=== PATIENT | male | born 1955 | race African-American/Black ===

== ENCOUNTER 2017-01-22 23:27 | Emergency (ER) | payer OTHER ==
[2017-01-23 00:11] LABS: #Eosinphils 0.2 thou/uL (0.0-0.7); #Lymphocytes 1.2 thou/uL (1.20-3.40); #Monocytes 0.6 thou/uL (0.11-0.59); #Neutrophils 4.3 thou/uL (1.40-6.50); %Basophils 0.4 % (0.0-1.0); %Eosinophils 3.5 % (0.0-10.0); %Monocytes 9.4 % (0.0-10.0); Hematocrit 33.6 % (42.0-52.0); Mean Platelet Volume 6.9 fL (7.4-10.4); Red Blood Cell (RBC) Count 3.41 mill/uL (4.70-6.10); White Blood Cell (WBC) Count 6.3 thou/uL (4.8-10.8)
[2017-01-23 00:31] LABS: ALT (SGPT) 103 U/L (8-55); AST (SGOT) 76 U/L (5-34); Alkaline Phosphatase 122 U/L (40-150); Anion Gap 13 mmol/L (10-20); BUN (Urea Nitrogen) 21 mg/dL (8.4-25.7); Bilirubin, Total 1.1 mg/dL (0.2-1.2); Calc. Creatinine Clearance 0 mL/min (70-130); Calcium 9.7 mg/dL (7.8-10.44); Carbon Dioxide 22 mmol/L (23-31); Chloride 106 mmol/L (98-107); Estimated GFR-MDRD 44; Protein, Total 6.3 g/dL (5.8-8.1)
[2017-01-23 00:35] LABS: Troponin I 0.036 ng/mL (< 0.028)
[2017-01-23] MEDS ORDERED: Furosemide 40 MG/4 ML VIAL ONE (01:30)
[2017-01-23 03:19] LABS: Troponin I 0.045 ng/mL (< 0.028)
--- NOTE | 2017-01-23 07:43 | RAD ---
PORTABLE AP CHEST: Date: 01/22/17 HISTORY: Chest pain. COMPARISON: 05/08/15. FINDINGS: Single lead left subclavian AICD device remains in place. The cardiac silhouette is enlarged. There i s suboptimal evaluation of the left lung base due to the enlarged cardiac silhouette and overlying so ft tissue density. Appearance is overall similar to the prior exam. Pleural and parenchymal changes l eft lung base cannot be excluded. Right lung is clear. No other interval change. IMPRESSION: 1. Cardiomegaly. 2. Suboptimal evaluation of the left lung base due to the enlarged cardiac silhouette. There is sugg estion of calcified pleural based plaque at the left lung base, but additional pleural and parenchyma l changes cannot be entirely excluded. POS: YU
--- NOTE | 2017-02-27 12:39 | EKG ---
Test Reason : CHEST PAIN Blood Pressure : / mmHG Vent. Rate : 080 BPM Atrial Rate : 080 BPM P-R Int : 166 ms QRS Dur : 108 ms QT Int : 412 ms P-R-T Axes : 083 008 149 degrees QTc Int : 475 ms Sinus rhythm with Premature supraventricular complexes Possible Left atrial enlargement Left ventricular hypertrophy with repolarization abnormality Abnormal ECG Confirmed by YURY CROOKS ([id number]), film editor supervisor SHO HAGER ([id number]) on 02/27/2017 12:39:19 PM Referred By: Confirmed By:YURY CROOKS
== END 2017-01-23 04:20 | disposition short-term general hospital (02) ==
LOC: ERS 23:27
DX: I50.9 Heart failure, unspecified (principal); Z79.4 Long term (current) use of insulin; B20 Human immunodeficiency virus [HIV] disease; J44.9 Chronic obstructive pulmonary disease, unspecified; Z79.82 Long term (current) use of aspirin; Z95.810 Presence of automatic (implantable) cardiac defibrillator
CPT/HCPCS: 36415; 71010; 80053; 82553; 83880; 84484; 85025; 93005; 96374; J1940

== ENCOUNTER 2018-01-21 04:07 | Observation (INO) | payer OTHER ==
[2018-01-21 05:18] LABS: Troponin I 0.019 ng/mL (< 0.028)
[2018-01-21] MEDS ORDERED: Ondansetron PF 4 MG/2 ML Vial ONE (05:28)
--- NOTE | 2018-01-21 05:34 | PDOC.FPRHP ---
- History of Present Illness Chief Complaint: chest pain History of Present Illness: This is a 62 yo M with PMH significant for WA s/p 2 stents and defibrillator, CHF, DM, HIV, COPD, Hep C, HTn, HLD, and hypothyroidism, presenting with CC of chest pain. Patient is an inmate and transfer from [place] for chest pain r/o. Patient states that he was in line for food when he first starting having chest pain yesterday. Patient states he has been "feeling bad" the last few days and reports SOB during that time that has gotten progressively worse. Patient also endorses N/V X 2 yesterday. Endorses palpitations. Patient states chest pain is left sided, characterized as sharp and radiates to the left shoulder. This pain has been intermittent since yesterday. Worse with walking. Patient states he took 4 nitro which some relief of chest pain. Patient rated pain as 9/10 at its worst and on exam now 5/10. Patient also endorses LE swelling bilaterally worse than normal. Patient denies cough, congestion, diarrhea, abdominal pain, or headache. ED Course: 4mg zofran, 500ml NS - Home Medications Medication Instructions Recorded Confirmed Type Abacavir Sulfate [Abacavir] 300 mg PO BID 01/21/18 01/21/18 History Albuterol Sulfate [Proventil Hfa] 2 puff INH Q6H PRN 01/21/18 01/21/18 History Aspirin [Aspirin EC] 81 mg PO DAILY 01/21/18 01/21/18 History Atorvastatin Calcium [Lipitor] 20 mg PO DAILY 01/21/18 01/21/18 History Beclomethasone Dipropionate [Qvar 01/21/18 History Redihaler] Carvedilol [Coreg] 6.25 mg PO BID 01/21/18 01/21/18 History Furosemide [Lasix] 40 mg PO BID 01/21/18 01/21/18 History Insulin NPH Human Isophane 7 units SC HS 01/21/18 01/21/18 History [NovoLIN N] Insulin NPH Human Isophane 22 unit SC QAM 01/21/18 01/21/18 History [NovoLIN N] Isosorbide Mononitrate [Isosorbide 01/21/18 History Mononitrate ER] Levothyroxine Sodium 125 mcg PO 01/21/18 History Lisinopril 2.5 mg PO DAILY 01/21/18 01/21/18 History Lopinavir/Ritonavir [Kaletra] 2 tab PO BID 01/21/18 01/21/18 History Omeprazole 20 mg PO 01/21/18 History Raltegravir Potassium [Isentress] 400 mg PO BID 01/21/18 01/21/18 History Spironolactone 25 mg PO 01/21/18 History Tiotropium [Spiriva Handihaler] 18 mcg INH DAILY 01/21/18 01/21/18 History - History PMHx: WA s/p 2 stents and defibrillator, CHF, DM, HIV, hep C, COPD, HTN, HLD, hypothyroidism PSHx: 2 cardiac stents and defibrillator FHx: father - WA at 77 Social: former smoker > 40 pack year hx; denies alcohol or drug use - Review of Systems General: denies: fever/chills, weight/appetite/sleep changes, night sweats, fatigue Eyes: denies: eye pain, vision changes ENT: denies: nasal congestion, rhinorrhea Respiratory: reports: shortness of breath, exercise intolerance. denies: cough , congestion Cardiovascular: reports: chest pain, palpitation, edema. denies: paroxysmal nocturnal dyspnea, orthopnea Gastrointestinal: reports: nausea, vomiting. denies: diarrhea, constipation, abdominal pain Genitourinary: denies: dysuria Skin: denies: rashes, lesions Musculoskeletal: reports: swelling. denies: pain, tenderness Neurological: denies: numbness, weakness - Vital signs BP: 111/69 HR: 70 RR: 16 Tmax: 98 Pox: 97% on RA Wt: 113kg - Physical Exam Constitutional: NAD, awake, alert and oriented, well developed HEENT: normocephalic and atraumatic, PERRLA, EOMI, conjunctiva clear, no scleral icterus, grossly normal vision, grossly normal hearing, MMM -HEENT: poor dentition Neck: supple, FROM, trachea midline, no JVD Chest: no-tender to palpation, no lesions -Chest: tender over defibrillator site Heart: RRR, normal S1/S2, no murmurs/rubs/gallops, pulses present -Heart: 1+ edema to ankles bilaterally Lungs: no respiratory distress -Lungs: crackles in RLL field > LLL Abdomen: soft, bowel sounds present, no masses/distention, no hernias -Abdomen: mild tender diffusely Musculoskeletal: normal structure, normal tone, ROM grossly normal Neurological: no focal deficit Skin: no rash/lesions, good turgor Psychiatric: normal mood and affect, good judgment and insight, intact recent and remote memory FMR H&P: Results - EKG Interpretation EKG: ST and T wave abnormalities - possible inferolateral ischemia FMR H&P: A/P - Problem List (1) Chest pain Current Visit: Yes Status: Acute Code(s): R07.9 - CHEST PAIN, UNSPECIFIED (2) HIV (human immunodeficiency virus infection) Current Visit: Yes Status: Acute (3) Hepatitis C Current Visit: Yes Status: Acute Code(s): B19.20 - UNSPECIFIED VIRAL HEPATITIS C WITHOUT HEPATIC COMA (4) Diabetes Current Visit: Yes Status: Acute Code(s): E11.9 - TYPE 2 DIABETES MELLITUS WITHOUT COMPLICATIONS (5) HTN (hypertension) Current Visit: Yes Status: Acute Code(s): I10 - ESSENTIAL (PRIMARY) HYPERTENSION (6) HLD (hyperlipidemia) Current Visit: Yes Status: Acute Code(s): E78.5 - HYPERLIPIDEMIA, UNSPECIFIED (7) COPD (chronic obstructive pulmonary disease) Current Visit: Yes Status: Acute (8) CHF (congestive heart failure) Current Visit: Yes Status: Acute Code(s): I50.9 - HEART FAILURE, UNSPECIFIED (9) Hypothyroid Current Visit: Yes Status: Acute Code(s): E03.9 - HYPOTHYROIDISM, UNSPECIFIED (10) CKD (chronic kidney disease) stage 3, GFR 30-59 ml/min Current Visit: Yes Status: Acute Code(s): N18.3 - CHRONIC KIDNEY DISEASE, STAGE 3 (MODERATE) - Plan Typical Chest pain - ACS rule out - Indeterminant Trop -> trended down - heart score 6 - risk stratify with lipids, A1C, TSH - hx of CHF: will obtain Echo - Stress today; Will keep NPO; hold beta javid - no IVF due to hx of CHF - nitro for pain, not currently having chest pain Hx of CHF, reduced EF - Elevated BNP 898 - Echo in 2012 showed EF: 15-20%, likely systolic CHF - Will obtain Echo - Will not give IVF - Give home dose of lasix CKD, stage 3 - Cr 1.83, previous admission Cr 1.88; GFR 45 - Will monitor - renally dose medications DM - aware, will restart home meds - Mild SS, ACHS accuchecks - hypoglycemic protocol HTN - aware, will restart home meds - Monitor BPs HIV - aware, restart home meds COPD - aware, restart home meds - O2 sats 88-92% - supplemental O2 as needed HLD - aware, restart home meds - lipid panel pending Hypothyroidism - aware, restart home meds DISPO: admit to tele for obs CODE: FULL VTE prophylaxis: heparin GI prophylaxis: Protonix FMR H&P: Upper Level - Pertinent history Patient is a 62 year old male with a known history of CAD s/p 2 stents, HFrEF, DM who presents to the ED with sudden onset chest pain that occurred with exertion. Pain radiated to left shoulder and down left arm. Accompanied by shortness of breath and nausea. He took NG which did not relieve the pain. He reports stable 2-pillow orthopnea His last episode of chest pain was 2 years ago just prior to getting his AICD. He had an WA 5 years ago and had 2 stents placed. 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 - Pertinent findings Vitals: BP 107/58 P: 68 RR: 18 O2: 98% on RA. Physical Exam General: alert and oriented x 3; appropriately conversant; in no pain Heart: regular rate and rhythm, no murmurs rubs, or gallops; tenderness to palpation over anterior chest wall, however, this does not reproduce his chest pain Abdomen: soft, diffusely tender to palpation; no guarding or rebound tenderness. Extremities: trace bilateral lower extremity edema. EKG: no active ischemia CXR, preliminary read cardiomegaly; no acute cardiopulmonary process Trop: 0.029 - Plan Date/Time: 01/21/18 0530 IVivi, have evaluated this patient and agree with findings/plan as outlined by internet sales director resident. Pertinent changes/additions are listed here. Typical chest pain, rule out ACS - Heart score 6. will admit to tele obs for further evaluation. - not currently having active chest pain. - risk stratification with FLP, A1C, TSH - stress test; NPO for stress - - trend troponins - NG for pain Coronary artery disease - s/p 2 stents. - continue B-javid, Statin, ASA Heart failure with reduced ejection fraction - does not appear to be in exacerbation. - last documented EF was 15-20% in 2012. - consider repeat Echo. - Pt on approprate HF goal directed therapy (MARIA LUISA, b-javid, spironolactone) HIV - resume home meds - unknown CD4 ct. Diabetes Mellitus - resume home meds - A1C - AC/HS accuchecks HTN - resume home meds CKD stage III - avoid nephrotoxic medications - Lisinopril, Spironolactone appropriately dosed with pt's renal function. COPD - resume home regimen.
[2018-01-21] MEDS ORDERED: PROVENTIL INHALER 6.7 G (200 INHALATIONS) INH PRN (05:48)
[2018-01-21] MEDS ORDERED: Levothyroxine Sodium 125 MCG TAB PO SCH (06:45)
[2018-01-21] MEDS ORDERED: Dextrose 50% Abboject 50 ML SYRINGE SLOW IVP PRN (07:49)
[2018-01-21] MEDS ORDERED: Dextrose 5% in Water 1,000 ML IV PRN (07:49)
[2018-01-21] MEDS ORDERED: Acetaminophen 325 MG TAB PO PRN (07:49)
[2018-01-21] MEDS ORDERED: Nitroglycerin 0.4 MG TAB (25 Tab Bottle) PO PRN (07:49)
[2018-01-21] MEDS ORDERED: Ondansetron ODT 4 MG TAB PO PRN (07:49)
[2018-01-21 08:19] LABS: Hemoglobin A1c 7.5 % (4.0-6.0)
[2018-01-21 08:33] LABS: Cardiac Risk 2.8 (Less than 4.5)
[2018-01-21 08:37] LABS: Troponin I 0.019 ng/mL (< 0.028)
[2018-01-21] MEDS ORDERED: Furosemide 40 MG TAB ONE (08:40)
[2018-01-21] MEDS ORDERED: Carvedilol 6.25 MG TAB PO SCH (09:00)
--- NOTE | 2018-01-21 12:20 | HP ---
I have discussed the case with Dr. Flory Holguin and I agree with her assessment and plan. Briefly, Mr. Joiner is a 62-year-old black male patient who presented with a suspicious sounding ches t pain and heart score of 6. His troponins are negative. He had been admitted for stress testing an d also echo given the history of heart failure. Currently, he is somewhat somnolent, but easily arou sable and oriented. He answers all questions appropriately. He denies any chest pain currently. PHYSICAL EXAMINATION: GENERAL: He is normocephalic with no outward signs of trauma. EARS, NOSE AND THROAT: No erythema. Mucous membranes moist. NECK: Supple. CARDIAC: Heart rhythm is regular. S4 gallop. No murmur or rub noted. LUNGS: Breath sounds are diminished, but clear. No rales, rhonchi or wheezes. No respiratory distr ess. ABDOMEN: Flat and soft. No guarding, rebound or rigidity. EXTREMITIES: He does have 1+ ankle edema. NEUROLOGIC: Has no focal deficits. LABORATORY DATA: His glucose is 107. His troponins are 0.019 x2. Cholesterol is 132, LDL 72, HDL 4 8. TSH is 1.84. EKG shows some nonspecific T-wave changes, no acute ST segment elevations. ASSESSMENT: Chest pain, possible coronary disease. PLAN: Admit, stress test, echo and proceed.
[2018-01-21] MEDS ORDERED: Heparin 1,000 UNITS/ML VIAL ONE (14:51)
[2018-01-21] MEDS: Ipratropium Bromide 2.5 ml Neb NEB SCH ×3 (15:15→23:52)
--- NOTE | 2018-01-21 15:17 | NM ---
MYOCARDIAL PERFUSION SCAN WITH SPECT IMAGIN01/21/18 HISTORY: Chest pain. Examination was performed using myocardial perfusion scan with SPECT imaging. Examination was performed using 29.9 millicuries of 99m technetium Sestamibi on the stress and 10 on the resting images. The left ventricular chamber is markedly dilated limiting evaluation. There is inferior wall scar pre sent. I do not see any definitive evidence for ischemia. WALL MOTION: There is severe global hypokinesis. LEFT VENTRICULAR EJECTION FRACTION: The calculated left ventricular ejection fraction is 23%. IMPRESSION: Markedly diminished left ventricular ejection fraction of 23%. No ischemic change identified. POS: YU
[2018-01-21 16:26] VITALS: BMI 28.7
[2018-01-21] MEDS ORDERED: Regadenoson 0.4 MG/5 ML SYRINGE ONE (16:44)
[2018-01-21] MEDS: Spironolactone 25 MG TAB PO SCH (16:51)
[2018-01-21] MEDS: Aspirin 81 mg Enteric Coated Tablet PO SCH (16:52)
[2018-01-21] MEDS: Furosemide 40 MG TAB PO SCH ×2 (16:52→21:36)
[2018-01-21] MEDS: Atorvastatin Calcium 20 MG TAB PO SCH (16:52)
[2018-01-21] MEDS: Heparin 5,000 UNITS/ML VIAL SC SCH ×3 (16:53→21:46)
[2018-01-21] MEDS: NPH, Human Insulin Isophane 300 UNIT/3 ML VIAL SC SCH (16:54)
[2018-01-21] MEDS: Lisinopril 2.5 MG TAB PO SCH (16:54)
[2018-01-21] MEDS: Lopinavir/Ritonavir 200-50mg TAB PO SCH ×2 (16:54→21:37)
[2018-01-21] MEDS: Raltegravir Potassium 400 MG TAB PO SCH ×2 (16:55→21:36)
[2018-01-21] MEDS: HumaLOG 300 UNITS/3 ML VIAL SC PRN (17:21)
[2018-01-21] MEDS: Mometasone 100 MCG HFA INHALER INH SCH (20:41)
[2018-01-21] MEDS ORDERED: NPH, Human Insulin Isophane 300 UNIT/3 ML VIAL SC SCH (21:00)
[2018-01-22] MEDS ORDERED: Levothyroxine Sodium 125 MCG TAB PO SCH (06:00)
--- NOTE | 2018-01-22 06:36 | PDOC.FM ---
- Subjective Subjective: Mr. Joiner says he is hungry for breakfast. Notes his chest pain has resolved. He is tired and has not gotten good rest in the hospital. - Objective MAR Reviewed: Yes Vital Signs & Weight: Vital Signs (12 hours) Temp Pulse Resp BP Pulse Ox 01/22/18 03:49 98.7 F 78 18 111/57 L 94 L 01/21/18 23:52 98.7 F 78 12 122/65 100 01/21/18 20:41 95 01/21/18 20:40 95 01/21/18 20:37 71 14 95 01/21/18 19:00 98.5 F 76 20 117/61 98 Weight Weight 91.58 kg I&O: 01/20/18 01/21/18 01/22/18 06:59 06:59 06:59 Intake Total 665 Output Total 575 Balance 90 Phys Exam - Physical Examination Constitutional: NAD Respiratory: no wheezing, no rhonchi, clear to auscultation bilateral Cardiovascular: RRR, no significant murmur Gastrointestinal: soft, non-tender, no distention, positive bowel sounds Musculoskeletal: no edema Neurological: non-focal Psychiatric: normal affect Skin: normal turgor, cap refill <2 seconds Dx/Plan (1) CHF (congestive heart failure) Code(s): I50.9 - HEART FAILURE, UNSPECIFIED Status: Acute (2) CKD (chronic kidney disease) stage 3, GFR 30-59 ml/min Code(s): N18.3 - CHRONIC KIDNEY DISEASE, STAGE 3 (MODERATE) Status: Acute (3) COPD (chronic obstructive pulmonary disease) Status: Acute (4) Chest pain Code(s): R07.9 - CHEST PAIN, UNSPECIFIED Status: Acute (5) Diabetes Code(s): E11.9 - TYPE 2 DIABETES MELLITUS WITHOUT COMPLICATIONS Status: Acute (6) HIV (human immunodeficiency virus infection) Status: Acute (7) HLD (hyperlipidemia) Code(s): E78.5 - HYPERLIPIDEMIA, UNSPECIFIED Status: Acute (8) HTN (hypertension) Code(s): I10 - ESSENTIAL (PRIMARY) HYPERTENSION Status: Acute (9) Hepatitis C Code(s): B19.20 - UNSPECIFIED VIRAL HEPATITIS C WITHOUT HEPATIC COMA Status: Acute (10) Hypothyroid Code(s): E03.9 - HYPOTHYROIDISM, UNSPECIFIED Status: Acute - Plan Plan: Typical Chest pain - ACS rule out - Indeterminant Trop -> trended down - heart score 6 - nitro for pain, not currently having chest pain - stress negative for ischemia. Not concerning for ACS. - continue home statin Hx of CHF, reduced EF - Elevated BNP 898 - Echo 20-25%, LV dilated, restrictive diastolic dysfunction - Pt on appropriate therapy: lasix, lisinopril, spironolactone, carvedilol - has defibrillator CKD, stage 3 - Cr 1.83, previous admission Cr 1.88; GFR 45 - renally dose medications DM - continue home meds - Mild SS, ACHS accuchecks. BG 138-272 over past 24hrs - hypoglycemic protocol - A1c 7.5 HTN - restart home meds - Monitor BPs, stable HIV - continue home meds COPD - continue home meds - O2 sats 88-92% - supplemental O2 as needed HLD - continue home meds Hypothyroidism - continue home meds DISPO: No concern for ACS, CHF stable, plan for discharge today CODE: FULL VTE prophylaxis: heparin GI prophylaxis: Protonix
[2018-01-22] MEDS: Ipratropium Bromide 2.5 ml Neb NEB SCH (07:42)
[2018-01-22] MEDS: Mometasone 100 MCG HFA INHALER INH SCH (07:43)
[2018-01-22] MEDS: Spironolactone 25 MG TAB PO SCH (09:00)
[2018-01-22] MEDS: Aspirin 81 mg Enteric Coated Tablet PO SCH (09:00)
[2018-01-22] MEDS: Atorvastatin Calcium 20 MG TAB PO SCH (09:00)
[2018-01-22] MEDS: Lisinopril 2.5 MG TAB PO SCH (09:01)
[2018-01-22] MEDS: Lopinavir/Ritonavir 200-50mg TAB PO SCH (09:04)
[2018-01-22] MEDS: Raltegravir Potassium 400 MG TAB PO SCH (09:14)
[2018-01-22] MEDS: Heparin 5,000 UNITS/ML VIAL SC SCH (09:14)
[2018-01-22] MEDS: NPH, Human Insulin Isophane 300 UNIT/3 ML VIAL SC SCH (09:15)
[2018-01-22] MEDS: Furosemide 40 MG TAB PO SCH (09:16)
--- NOTE | 2018-01-22 11:53 | ADD-PRG ---
ADDENDUM This is an addendum to the note of Dr. Anai Moore. Mr. Joiner underwent a stress Myoview that did not show reversible ischemia. He does have significan t heart failure, but already has a defibrillator and is on medical management of his heart failure. Mr. Joiner is still quite somnolent in fact almost falls asleep during our conversation. He does sta te that he has been told in the past that he needs a sleep study to consider sleep apnea. I would hi ghly recommend he get this through the [facility] system when he returns as this will likely exacerbate a ll of his other medical problems.
[2018-01-22 12:13] VITALS: BP 119/61; TEMP 98.1
[2018-01-22] MEDS: HumaLOG 300 UNITS/3 ML VIAL SC PRN (12:42)
--- NOTE | 2018-01-24 10:24 | DIS ---
DATE OF ADMISSION: 01/21/2018 DATE OF DISCHARGE: 01/22/2018 RESIDENT: Anai Moore DO ADMITTING ATTENDING: Dr. Sebastien Funes. DISCHARGE ATTENDING: Dr. Sebastien Funes. CONSULTS: None. PROCEDURES: Stress test nuclear medicine on 01/21/2018, showed no ischemic changes identified. Markedly diminished left ventricular ejection fraction of 23%. Echocardiogram on 01/21/2018, showed ejection fraction visually estimated at 20 % to 25%, left ventricle dilated, restrictive filling pattern suggesting restrictive diastolic function cannot exclude, pacer wire visualized in right ventricle, [id number] mitral regurgitation present, moderate tricuspid regurgitation. PRIMARY DIAGNOSIS: Typical chest pain, presenting for acute coronary syndrome rule out. SECONDARY DIAGNOSES: 1. Heart failure with reduced ejection fraction. 2. Chronic kidney disease, stage 3. 3. Diabetes. 4. Hypertension. 5. Human immunodeficiency virus. 6. Chronic obstructive pulmonary disease. 7. Hyperlipidemia. 8. Hypothyroidism. DISCHARGE MEDICATIONS: 1. Abacavir 300 mg p.o. b.i.d. 2. Novolin 7 units subcu at bedtime. 3. Tiotropium 18 mcg inhaled q.p.m. 4. Insulin NPH (Novolin) 22 units subcu q.a.m. 5. Lisinopril 2.5 mg p.o. daily. 6. Kaletra 2 tablets p.o. b.i.d. 7. Raltegravir potassium 400 mg p.o. b.i.d. 8. Furosemide 400 mg p.o. b.i.d. 9. Carvedilol 6.25 mg p.o. b.i.d. 10. Lipitor 20 mg p.o. daily. 11. Aspirin 81 mg p.o. daily. 12. Spironolactone 25 mg p.o. daily. 13. Omeprazole 20 mg p.o. daily. 14. Synthroid 125 mcg p.o. q.a.m. 15. Isosorbide mononitrate 30 mg p.o. daily. 16. Beclomethasone dipropionate 1 puff inhaled b.i.d. 17. Triamcinolone 1 application topical daily. 18. Insulin regular 5 units subcu b.i.d. with meals. 19. Nitroglycerin 0.4 mg sublingual q.5 minutes p.r.n. 20. Albuterol sulfate 2 puffs inhaled q.i.d. p.r.n. HISTORY OF PRESENT ILLNESS: A 62-year-old male was transferred from the [place] [facility] for a chest pain rule out. He reported feeling bad for the previous few days and reported shortness of breath during that time, which had progressively worsened. He also endorsed nausea and vomiting x2 the previous day along with palpitations. He described the chest pain is left-sided, sharp, radiating to left shoulder, intermittent, worse with exertion. Nitro relieved the pain. The patient was admitted for a chest pain rule out. HEART Score 6. Indeterminate troponins trended down. Echo and stress test were negative and showed no change compared to the previous ejection fraction noted in 2013, on a different echo. The patient's chest pain resolved , and he was stable for discharge. His home medications were all restarted. No concern for acute coronary syndrome. DISPOSITION: Stable. DISCHARGE INSTRUCTIONS: Location: Custodial. Diet: Heart healthy and diabetic. Activity: As tolerated. Follow up with PCP in 1 week. Job ID: [id number] [facility]
--- NOTE | 2018-01-26 14:27 | EKG ---
Test Reason : Blood Pressure : / mmHG Vent. Rate : 068 BPM Atrial Rate : 068 BPM P-R Int : 178 ms QRS Dur : 098 ms QT Int : 442 ms P-R-T Axes : 072 023 188 degrees QTc Int : 469 ms Normal sinus rhythm Prolonged QT Abnormal ECG Confirmed by FLAKITO PENNY MD ([id number]), research editor ROSA MEDRANO ([id number] on 01/26/2018 2:27:11 PM Referred By: Confirmed By:FLAKITO PENNY MD
== END 2018-01-22 14:25 ==
LOC: ERS 04:07 → ERHOLD 04:45 → 2SW 16:13
PROVIDERS: ADMIT Emergency Medicine; ATTEND Emergency Medicine
DX: R07.9 Chest pain, unspecified (principal); I25.2 Old myocardial infarction; I13.0 Hypertensive heart and chronic kidney disease with heart failure and stage 1 through stage 4 chronic kidney disease, or unspecified chronic kidney disease; E11.22 Type 2 diabetes mellitus with diabetic chronic kidney disease; N18.3 Chronic kidney disease, stage 3 (moderate); I50.20 Unspecified systolic (congestive) heart failure; J44.9 Chronic obstructive pulmonary disease, unspecified; E78.5 Hyperlipidemia, unspecified; E03.9 Hypothyroidism, unspecified; I25.10 Atherosclerotic heart disease of native coronary artery without angina pectoris; B19.20 Unspecified viral hepatitis C without hepatic coma; Z87.891 Personal history of nicotine dependence; Z79.4 Long term (current) use of insulin; Z79.82 Long term (current) use of aspirin; Z79.899 Other long term (current) drug therapy; Z88.0 Allergy status to penicillin; Z91.010 Allergy to peanuts; Z95.5 Presence of coronary angioplasty implant and graft; Z95.810 Presence of automatic (implantable) cardiac defibrillator; Z21 Asymptomatic human immunodeficiency virus [HIV] infection status
CPT/HCPCS: 36415; 36416; 78452; 80061; 83036; 84443; 93005; 93017; 93306; 94640; 94664; 94760; 96374; A9500; G0378; J1644; J1815; J2405; J2785

== ENCOUNTER 2019-08-02 01:14 | Emergency (ER) | payer OTHER ==
[2019-08-02] MEDS ORDERED: Cyclobenzaprine 10 MG TAB ONE (01:53)
[2019-08-02 03:03] LABS: ALT (SGPT) 19 U/L (8-55); AST (SGOT) 24 U/L (5-34); Albumin 4.1 g/dL (3.4-4.8); Alkaline Phosphatase 135 U/L (40-110); Anion Gap 13 mmol/L (10-20); BUN (Urea Nitrogen) 25 mg/dL (8.4-25.7); Bilirubin, Total 0.7 mg/dL (0.2-1.2); Calc. Creatinine Clearance 0 mL/min (70-130); Calcium 9.5 mg/dL (7.8-10.44); Carbon Dioxide 25 mmol/L (23-31); Chloride 101 mmol/L (98-107); Estimated GFR-MDRD 41; Globulin 3.8 g/dL (2.4-3.5); Glucose 150 mg/dL (80-115); Potassium 4.8 mmol/L (3.5-5.1); Protein, Total 7.9 g/dL (5.8-8.1); Sodium 134 mmol/L (136-145)
[2019-08-02 03:11] LABS: Hemoglobin 13.1 g/dL (14.0-18.0); Mean Corpuscular HGB CONC 34.1 g/dL (32.0-36.0); Mean Corpuscular Hemoglobin 32.6 pg (27.0-31.0); Mean Corpuscular Volume 95.8 fL (78.0-98.0); Mean Platelet Volume 7.9 fL (7.4-10.4); Platelet Count 167 thou/uL (130-400); RBC Distribution Width 11.6 % (11.5-14.5); Red Blood Cell (RBC) Count 4.03 mill/uL (4.70-6.10); White Blood Cell (WBC) Count 4.2 thou/uL (4.8-10.8)
[2019-08-02 03:26] LABS: Band 3 % (5-11); Lymphocytes 19 % (21-51); MDiff Complete? YES; Monocytes 23 % (0-10); Neutrophil 55 % (42-75)
== END 2019-08-02 03:20 ==
LOC: ERS 01:14
DX: M62.830 Muscle spasm of back (principal); I25.2 Old myocardial infarction; E11.9 Type 2 diabetes mellitus without complications; I11.0 Hypertensive heart disease with heart failure; I50.9 Heart failure, unspecified; E03.9 Hypothyroidism, unspecified; J44.9 Chronic obstructive pulmonary disease, unspecified; E78.5 Hyperlipidemia, unspecified; E78.00 Pure hypercholesterolemia, unspecified; E78.1 Pure hyperglyceridemia; Z79.4 Long term (current) use of insulin; Z79.891 Long term (current) use of opiate analgesic; Z79.82 Long term (current) use of aspirin; Z79.899 Other long term (current) drug therapy
CPT/HCPCS: 36415; 80053; 85025; 99283

== ENCOUNTER 2022-08-04 23:22 | Inpatient (IN) | payer OTHER ==
[2022-08-05 01:25] VITALS: BMI 24.7
[2022-08-05] MEDS ORDERED: Ondansetron ODT 4 MG TAB PO PRN (01:37)
[2022-08-05] MEDS ORDERED: Glucagon 1 MG/ML KIT IM PRN (01:37)
[2022-08-05] MEDS ORDERED: Dextrose 50% Abboject 50 ML SYRINGE SLOW IVP PRN (01:37)
[2022-08-05] MEDS ORDERED: Dextrose 5% in Water 1,000 ML IV PRN (01:37)
[2022-08-05] MEDS ORDERED: Pantoprazole 40 MG VIAL IVP SCH (02:15)
[2022-08-05] MEDS ORDERED: Morphine 2 MG/ML VIAL SLOW IVP SCH (02:15)
[2022-08-05 04:55] LABS: #Eosinphils 0.1 thou/uL (0.0-0.7); #Monocytes 0.6 thou/uL (0.11-0.59); #Neutrophils 2.6 thou/uL (1.40-6.50); %Basophils 0.5 % (0.0-1.0); %Eosinophils 3.2 % (0.0-10.0); %Monocytes 15.8 % (0.0-10.0); %Neutrophils 64.3 % (42.0-75.0); Hemoglobin 9.2 g/dL (14.0-18.0); Mean Corpuscular HGB CONC 31.7 g/dL (32.0-36.0); Mean Corpuscular Hemoglobin 31.2 pg (27.0-31.0); Mean Corpuscular Volume 98.3 fl (78.0-98.0); Mean Platelet Volume 11.6 fL (7.4-10.4); RBC Distribution Width 16.2 % (11.5-14.5); Red Blood Cell (RBC) Count 2.95 mill/uL (4.70-6.10); White Blood Cell (WBC) Count 4.1 10x3/uL (4.8-10.8)
[2022-08-05 04:58] LABS: Platelet Count 115 10x3/uL (130-400)
[2022-08-05 05:24] LABS: Anion Gap 11 mmol/L (10-20); BUN (Urea Nitrogen) 28 mg/dL (8.4-25.7); Calc. Creatinine Clearance 45 mL/min (70-130); Calcium 8.9 mg/dL (7.8-10.44); Carbon Dioxide 25 mmol/L (23-31); Chloride 104 mmol/L (98-107); Estimated GFR 40; Glucose 64 mg/dL (80-115); Magnesium 2.2 mg/dL (1.6-2.6); Potassium 3.8 mmol/L (3.5-5.1); Sodium 136 mmol/L (136-145)
[2022-08-05] MEDS: Furosemide 40 MG/4 ML VIAL SLOW IVP SCH ×2 (05:41→14:36)
[2022-08-05] MEDS ORDERED: Heparin 5,000 UNITS/ML VIAL SC SCH (09:00)
[2022-08-05] MEDS: Pantoprazole 40 MG VIAL IVP SCH ×2 (09:52→21:59)
[2022-08-05] MEDS ORDERED: Albuterol 200 PUFF (6.7GM INHALER) INH PRN (17:45)
[2022-08-05] MEDS: Mometasone 100 MCG/PUFF (1 INHALER) INH SCH (19:20)
[2022-08-05] MEDS: Atorvastatin Calcium 40 MG TAB PO SCH (21:58)
[2022-08-05] MEDS: Carvedilol 6.25 MG TAB PO SCH (21:58)
[2022-08-05] MEDS: Raltegravir Potassium 400 MG TAB PO SCH (21:58)
[2022-08-05] MEDS: Calcium Carbonate 500 MG TAB PO SCH (21:58)
[2022-08-05] MEDS: Lopinavir/Ritonavir 80 MG/20 MG per ML Oral Solution PO SCH (21:59)
[2022-08-05] MEDS: cefTRIAXone\\ROCEPHIN 1 GM in Sodium Chloride 0.9% 100 ML IVPB SCH (22:29)
[2022-08-05] MEDS: Acetaminophen 325 MG TAB PO PRN (22:36)
[2022-08-06 05:18] LABS: #Eosinphils 0.1 thou/uL (0.0-0.7); #Monocytes 0.6 thou/uL (0.11-0.59); #Neutrophils 2.5 thou/uL (1.40-6.50); %Basophils 0.5 % (0.0-1.0); %Eosinophils 2.9 % (0.0-10.0); %Lymphocytes 17.1 % (21.0-51.0); %Monocytes 15.3 % (0.0-10.0); %Neutrophils 63.9 % (42.0-75.0); Mean Corpuscular HGB CONC 31.9 g/dL (32.0-36.0); Mean Corpuscular Volume 97.2 fl (78.0-98.0); Mean Platelet Volume 11.8 fL (7.4-10.4); RBC Distribution Width 15.9 % (11.5-14.5); White Blood Cell (WBC) Count 3.9 10x3/uL (4.8-10.8)
[2022-08-06 05:39] LABS: Platelet Count 113 10x3/uL (130-400)
[2022-08-06 05:40] LABS: Anion Gap 10 mmol/L (10-20); BUN (Urea Nitrogen) 27 mg/dL (8.4-25.7); Calc. Creatinine Clearance 38 mL/min (70-130); Calcium 8.8 mg/dL (7.8-10.44); Carbon Dioxide 25 mmol/L (23-31); Chloride 101 mmol/L (98-107); Estimated GFR 33; Glucose 185 mg/dL (80-115); Potassium 4.1 mmol/L (3.5-5.1); Sodium 132 mmol/L (136-145)
[2022-08-06] MEDS: Levothyroxine Sodium 125 MCG TAB PO SCH (06:20)
[2022-08-06] MEDS: Furosemide 40 MG/4 ML VIAL SLOW IVP SCH ×2 (06:20→13:53)
[2022-08-06] MEDS: Mometasone 100 MCG/PUFF (1 INHALER) INH SCH ×2 (08:00→18:31)
[2022-08-06] MEDS: Calcium Carbonate 500 MG TAB PO SCH ×3 (08:12→20:20)
[2022-08-06] MEDS: Aspirin 81 mg Enteric Coated Tablet PO SCH (08:12)
[2022-08-06] MEDS: Carvedilol 6.25 MG TAB PO SCH ×2 (08:12→20:20)
[2022-08-06] MEDS: Raltegravir Potassium 400 MG TAB PO SCH ×2 (08:12→20:20)
[2022-08-06] MEDS: Ferrous Sulfate 325 MG TAB PO SCH (08:13)
[2022-08-06] MEDS: Pantoprazole 40 MG VIAL IVP SCH ×2 (08:13→20:21)
[2022-08-06] MEDS: Spironolactone 25 MG TAB PO SCH (08:13)
[2022-08-06] MEDS: Venlafaxine HCl XR 75 MG CAP PO SCH (08:14)
[2022-08-06] MEDS: Lopinavir/Ritonavir 80 MG/20 MG per ML Oral Solution PO SCH ×2 (09:20→19:11)
[2022-08-06] MEDS: HumaLOG 300 UNITS/3 ML VIAL SC PRN ×3 (12:22→20:25)
[2022-08-06] MEDS: Atorvastatin Calcium 40 MG TAB PO SCH (20:20)
[2022-08-06] MEDS: cefTRIAXone\\ROCEPHIN 1 GM in Sodium Chloride 0.9% 100 ML IVPB SCH (22:05)
[2022-08-07] MEDS: Acetaminophen 325 MG TAB PO PRN (02:36)
[2022-08-07 04:19] LABS: #Eosinphils 0.1 thou/uL (0.0-0.7); #Monocytes 0.9 thou/uL (0.11-0.59); #Neutrophils 3.4 thou/uL (1.40-6.50); %Basophils 0.4 % (0.0-1.0); %Eosinophils 1.5 % (0.0-10.0); %Lymphocytes 14.9 % (21.0-51.0); %Monocytes 17.4 % (0.0-10.0); %Neutrophils 65.6 % (42.0-75.0); Hemoglobin 9.6 g/dL (14.0-18.0); Mean Corpuscular HGB CONC 32.8 g/dL (32.0-36.0); Mean Corpuscular Hemoglobin 31.4 pg (27.0-31.0); Mean Corpuscular Volume 95.8 fl (78.0-98.0); RBC Distribution Width 15.9 % (11.5-14.5); Red Blood Cell (RBC) Count 3.06 mill/uL (4.70-6.10); White Blood Cell (WBC) Count 5.2 10x3/uL (4.8-10.8)
[2022-08-07 04:22] LABS: Platelet Count 116 10x3/uL (130-400)
[2022-08-07 04:49] LABS: Anion Gap 14 mmol/L (10-20); BUN (Urea Nitrogen) 30 mg/dL (8.4-25.7); Calc. Creatinine Clearance 36 mL/min (70-130); Calcium 9.2 mg/dL (7.8-10.44); Carbon Dioxide 22 mmol/L (23-31); Chloride 101 mmol/L (98-107); Estimated GFR 32; Glucose 133 mg/dL (80-115); Potassium 4.4 mmol/L (3.5-5.1); Sodium 133 mmol/L (136-145)
[2022-08-07] MEDS: Furosemide 40 MG/4 ML VIAL SLOW IVP SCH ×2 (05:36→16:00)
[2022-08-07] MEDS: Levothyroxine Sodium 125 MCG TAB PO SCH (05:36)
[2022-08-07] MEDS: Calcium Carbonate 500 MG TAB PO SCH ×3 (08:46→20:53)
[2022-08-07] MEDS: Lopinavir/Ritonavir 80 MG/20 MG per ML Oral Solution PO SCH ×2 (08:46→18:20)
[2022-08-07] MEDS: Aspirin 81 mg Enteric Coated Tablet PO SCH (08:46)
[2022-08-07] MEDS: Pantoprazole 40 MG VIAL IVP SCH ×2 (08:47→21:03)
[2022-08-07] MEDS: Ferrous Sulfate 325 MG TAB PO SCH (08:47)
[2022-08-07] MEDS: Carvedilol 6.25 MG TAB PO SCH ×2 (08:47→22:32)
[2022-08-07] MEDS: Raltegravir Potassium 400 MG TAB PO SCH ×2 (08:47→20:53)
[2022-08-07] MEDS: Venlafaxine HCl XR 75 MG CAP PO SCH (08:47)
[2022-08-07] MEDS: Spironolactone 25 MG TAB PO SCH (08:47)
[2022-08-07] MEDS: Mometasone 100 MCG/PUFF (1 INHALER) INH SCH ×2 (11:05→18:50)
[2022-08-07] MEDS: traMADol HCl 50 MG TAB PO PRN ×2 (12:30→22:39)
[2022-08-07] MEDS: HumaLOG 300 UNITS/3 ML VIAL SC PRN ×3 (12:31→21:19)
[2022-08-07] MEDS: Atorvastatin Calcium 40 MG TAB PO SCH (20:53)
[2022-08-07] MEDS: cefTRIAXone\\ROCEPHIN 1 GM in Sodium Chloride 0.9% 100 ML IVPB SCH (22:33)
[2022-08-08 05:21] LABS: #Eosinphils 0.1 thou/uL (0.0-0.7); #Monocytes 0.9 thou/uL (0.11-0.59); #Neutrophils 4.2 thou/uL (1.40-6.50); %Basophils 0.2 % (0.0-1.0); %Eosinophils 2.2 % (0.0-10.0); %Lymphocytes 12.2 % (21.0-51.0); %Monocytes 14.7 % (0.0-10.0); %Neutrophils 70.4 % (42.0-75.0); Mean Corpuscular HGB CONC 32.8 g/dL (32.0-36.0); Mean Corpuscular Hemoglobin 31.2 pg (27.0-31.0); Mean Platelet Volume 11.5 fL (7.4-10.4); RBC Distribution Width 15.9 % (11.5-14.5); Red Blood Cell (RBC) Count 3.21 mill/uL (4.70-6.10); White Blood Cell (WBC) Count 5.9 10x3/uL (4.8-10.8)
[2022-08-08 05:27] LABS: Platelet Count 119 10x3/uL (130-400)
[2022-08-08 05:37] LABS: Anion Gap 11 mmol/L (10-20); BUN (Urea Nitrogen) 33 mg/dL (8.4-25.7); Calc. Creatinine Clearance 33 mL/min (70-130); Calcium 9.4 mg/dL (7.8-10.44); Carbon Dioxide 25 mmol/L (23-31); Chloride 99 mmol/L (98-107); Estimated GFR 29; Glucose 186 mg/dL (80-115); Potassium 4.5 mmol/L (3.5-5.1); Sodium 130 mmol/L (136-145)
[2022-08-08] MEDS: Levothyroxine Sodium 125 MCG TAB PO SCH (06:14)
[2022-08-08] MEDS: Furosemide 40 MG/4 ML VIAL SLOW IVP SCH ×2 (06:14→13:58)
[2022-08-08] MEDS: Bisacodyl 5 MG TAB PO PRN (09:32)
[2022-08-08] MEDS: Ferrous Sulfate 325 MG TAB PO SCH (09:33)
[2022-08-08] MEDS: Calcium Carbonate 500 MG TAB PO SCH ×3 (09:33→20:57)
[2022-08-08] MEDS: Spironolactone 25 MG TAB PO SCH (09:33)
[2022-08-08] MEDS: Carvedilol 6.25 MG TAB PO SCH ×2 (09:33→20:57)
[2022-08-08] MEDS: Venlafaxine HCl XR 75 MG CAP PO SCH (09:34)
[2022-08-08] MEDS: Raltegravir Potassium 400 MG TAB PO SCH ×2 (09:34→20:57)
[2022-08-08] MEDS: Aspirin 81 mg Enteric Coated Tablet PO SCH (09:34)
[2022-08-08] MEDS: Pantoprazole 40 MG VIAL IVP SCH ×2 (09:37→20:55)
[2022-08-08] MEDS: Lopinavir/Ritonavir 80 MG/20 MG per ML Oral Solution PO SCH ×2 (10:34→17:07)
[2022-08-08] MEDS: Mometasone 100 MCG/PUFF (1 INHALER) INH SCH ×2 (10:34→18:36)
[2022-08-08] MEDS: HumaLOG 300 UNITS/3 ML VIAL SC PRN ×3 (10:35→20:58)
[2022-08-08] MEDS: Atorvastatin Calcium 40 MG TAB PO SCH (20:57)
[2022-08-08] MEDS: cefTRIAXone\\ROCEPHIN 1 GM in Sodium Chloride 0.9% 100 ML IVPB SCH (22:53)
[2022-08-08] MEDS: traMADol HCl 50 MG TAB PO PRN (22:57)
[2022-08-09] MEDS: Furosemide 40 MG/4 ML VIAL SLOW IVP SCH ×2 (05:11→15:17)
[2022-08-09] MEDS: Levothyroxine Sodium 125 MCG TAB PO SCH (05:11)
[2022-08-09 05:12] LABS: #Eosinphils 0.1 thou/uL (0.0-0.7); #Monocytes 0.9 thou/uL (0.11-0.59); #Neutrophils 4.7 thou/uL (1.40-6.50); %Basophils 0.3 % (0.0-1.0); %Eosinophils 1.5 % (0.0-10.0); %Lymphocytes 11.3 % (21.0-51.0); %Monocytes 14.1 % (0.0-10.0); %Neutrophils 72.5 % (42.0-75.0); Hemoglobin 10.1 g/dL (14.0-18.0); Mean Corpuscular Hemoglobin 31.8 pg (27.0-31.0); Mean Corpuscular Volume 96.2 fl (78.0-98.0); Mean Platelet Volume 11.7 fL (7.4-10.4); Platelet Count 117 10x3/uL (130-400); RBC Distribution Width 15.9 % (11.5-14.5); Red Blood Cell (RBC) Count 3.18 mill/uL (4.70-6.10); White Blood Cell (WBC) Count 6.5 10x3/uL (4.8-10.8)
[2022-08-09 05:24] LABS: Anion Gap 14 mmol/L (10-20); BUN (Urea Nitrogen) 36 mg/dL (8.4-25.7); Calc. Creatinine Clearance 30 mL/min (70-130); Calcium 9.6 mg/dL (7.8-10.44); Carbon Dioxide 23 mmol/L (23-31); Chloride 98 mmol/L (98-107); Estimated GFR 25; Glucose 258 mg/dL (80-115); Potassium 4.6 mmol/L (3.5-5.1); Sodium 130 mmol/L (136-145)
[2022-08-09] MEDS: Mometasone 100 MCG/PUFF (1 INHALER) INH SCH ×2 (07:47→18:54)
[2022-08-09] MEDS: HumaLOG 300 UNITS/3 ML VIAL SC PRN ×2 (08:14→13:50)
[2022-08-09] MEDS: traMADol HCl 50 MG TAB PO PRN (08:17)
[2022-08-09] MEDS: Pantoprazole 40 MG VIAL IVP SCH ×2 (08:52→21:55)
[2022-08-09] MEDS: Venlafaxine HCl XR 75 MG CAP PO SCH (08:52)
[2022-08-09] MEDS: Spironolactone 25 MG TAB PO SCH (08:52)
[2022-08-09] MEDS: Ferrous Sulfate 325 MG TAB PO SCH (08:52)
[2022-08-09] MEDS: Raltegravir Potassium 400 MG TAB PO SCH ×2 (08:52→21:56)
[2022-08-09] MEDS: Calcium Carbonate 500 MG TAB PO SCH ×3 (08:52→21:56)
[2022-08-09] MEDS: Aspirin 81 mg Enteric Coated Tablet PO SCH (08:52)
[2022-08-09] MEDS: Carvedilol 6.25 MG TAB PO SCH ×2 (08:52→21:56)
[2022-08-09] MEDS: Lopinavir/Ritonavir 80 MG/20 MG per ML Oral Solution PO SCH ×2 (10:34→17:48)
[2022-08-09] MEDS: Morphine 2 MG/ML VIAL SLOW IVP PRN ×2 (17:57→23:47)
[2022-08-09] MEDS: Ondansetron PF 4 MG/2 ML Vial IVP PRN ×2 (17:57→23:49)
[2022-08-09] MEDS: Atorvastatin Calcium 40 MG TAB PO SCH (21:56)
[2022-08-09] MEDS: cefTRIAXone\\ROCEPHIN 1 GM in Sodium Chloride 0.9% 100 ML IVPB SCH (23:01)
[2022-08-10] MEDS: traMADol HCl 50 MG TAB PO PRN ×2 (02:56→09:02)
[2022-08-10] MEDS: Bisacodyl 5 MG TAB PO PRN (02:58)
[2022-08-10 05:05] LABS: #Eosinphils 0.1 thou/uL (0.0-0.7); #Monocytes 0.8 thou/uL (0.11-0.59); #Neutrophils 4.2 thou/uL (1.40-6.50); %Basophils 0.5 % (0.0-1.0); %Eosinophils 2.1 % (0.0-10.0); %Monocytes 13.5 % (0.0-10.0); %Neutrophils 69.4 % (42.0-75.0); Hemoglobin 10.2 g/dL (14.0-18.0); Mean Corpuscular HGB CONC 32.6 g/dL (32.0-36.0); Mean Corpuscular Hemoglobin 31.4 pg (27.0-31.0); Mean Corpuscular Volume 96.3 fl (78.0-98.0); Mean Platelet Volume 11.1 fL (7.4-10.4); RBC Distribution Width 15.9 % (11.5-14.5); Red Blood Cell (RBC) Count 3.25 mill/uL (4.70-6.10); White Blood Cell (WBC) Count 6.1 10x3/uL (4.8-10.8)
[2022-08-10 05:24] LABS: Anion Gap 13 mmol/L (10-20); BUN (Urea Nitrogen) 39 mg/dL (8.4-25.7); Calc. Creatinine Clearance 26 mL/min (70-130); Calcium 9.7 mg/dL (7.8-10.44); Carbon Dioxide 25 mmol/L (23-31); Chloride 97 mmol/L (98-107); Estimated GFR 22; Glucose 221 mg/dL (80-115); Platelet Count 125 10x3/uL (130-400); Potassium 5.4 mmol/L (3.5-5.1); Sodium 130 mmol/L (136-145)
[2022-08-10] MEDS: Furosemide 40 MG/4 ML VIAL SLOW IVP SCH (06:03)
[2022-08-10] MEDS: Levothyroxine Sodium 125 MCG TAB PO SCH (06:03)
[2022-08-10] MEDS: HumaLOG 300 UNITS/3 ML VIAL SC PRN (06:17)
[2022-08-10] MEDS: Mometasone 100 MCG/PUFF (1 INHALER) INH SCH ×2 (07:45→18:44)
[2022-08-10] MEDS ORDERED: hydrALAZINE 20 MG/ML VIAL SLOW IVP PRN (08:57)
[2022-08-10] MEDS: Aspirin 81 mg Enteric Coated Tablet PO SCH (09:03)
[2022-08-10] MEDS: Calcium Carbonate 500 MG TAB PO SCH ×2 (09:03→15:22)
[2022-08-10] MEDS: Spironolactone 25 MG TAB PO SCH (09:03)
[2022-08-10] MEDS: Venlafaxine HCl XR 75 MG CAP PO SCH (09:05)
[2022-08-10] MEDS: Carvedilol 6.25 MG TAB PO SCH (09:05)
[2022-08-10] MEDS: Ferrous Sulfate 325 MG TAB PO SCH (09:05)
[2022-08-10] MEDS: Pantoprazole 40 MG VIAL IVP SCH (09:06)
[2022-08-10] MEDS ORDERED: Insulin Regular 300 UNITS/3 ML VIAL IVP SCH (09:15)
[2022-08-10] MEDS ORDERED: Dextrose 50% Abboject 50 ML SYRINGE SLOW IVP SCH (09:15)
[2022-08-10] MEDS: Lopinavir/Ritonavir 80 MG/20 MG per ML Oral Solution PO SCH ×2 (10:29→17:49)
[2022-08-10 10:31] LABS: Anion Gap 13 mmol/L (10-20); BUN (Urea Nitrogen) 39 mg/dL (8.4-25.7); Calc. Creatinine Clearance 28 mL/min (70-130); Calcium 9.7 mg/dL (7.8-10.44); Carbon Dioxide 23 mmol/L (23-31); Chloride 97 mmol/L (98-107); Estimated GFR 22; Glucose 190 mg/dL (80-115); Potassium 4.9 mmol/L (3.5-5.1); Sodium 128 mmol/L (136-145)
[2022-08-10] MEDS: Raltegravir Potassium 400 MG TAB PO SCH (10:35)
[2022-08-10 10:50] LABS: Ref Lab Test Ordered HIV GENOTYPE; Reference Lab Name LABCORP
[2022-08-10 17:30] VITALS: BP 119/71; TEMP 98.3
[2022-08-11] MEDS ORDERED: Furosemide 40 MG TAB PO SCH (07:30)
[2022-08-11 14:39] LABS: %CD4 (Helper/Inducer) 45.4 % (30.8-58.5); Absolute CD4 363 /uL (359-1519); Lymphocytes/Gated Cell Count 0.8 x10E3/uL (0.7-3.1); Total Lymphocyte 13 % (Not Estab.)
[2022-08-12 19:13] LABS: HIV-1 Quantitative, RNA PCR <20 copies/mL (.)
== END 2022-08-10 19:03 | DRG 291 ==
LOC: UNDOADMIN 23:22 → 2NO 23:22 → EEVIPCON 08-05 02:05 → 2NO 08-05 02:05
PROVIDERS: ADMIT Internal Medicine; ATTEND Internal Medicine
DX: I13.0 Hypertensive heart and chronic kidney disease with heart failure and stage 1 through stage 4 chronic kidney disease, or unspecified chronic kidney disease (principal); I50.23 Acute on chronic systolic (congestive) heart failure; R18.8 Other ascites; N39.0 Urinary tract infection, site not specified; N18.4 Chronic kidney disease, stage 4 (severe); N17.9 Acute kidney failure, unspecified; E87.1 Hypo-osmolality and hyponatremia; I25.5 Ischemic cardiomyopathy; E11.9 Type 2 diabetes mellitus without complications; N43.3 Hydrocele, unspecified; I86.1 Scrotal varices; I25.10 Atherosclerotic heart disease of native coronary artery without angina pectoris; D63.1 Anemia in chronic kidney disease; Z21 Asymptomatic human immunodeficiency virus [HIV] infection status; E78.5 Hyperlipidemia, unspecified; J44.9 Chronic obstructive pulmonary disease, unspecified; Z86.19 Personal history of other infectious and parasitic diseases; E03.9 Hypothyroidism, unspecified; R33.9 Retention of urine, unspecified; I07.1 Rheumatic tricuspid insufficiency; E87.5 Hyperkalemia; Z95.810 Presence of automatic (implantable) cardiac defibrillator; Z91.010 Allergy to peanuts; Z88.0 Allergy status to penicillin; Z79.899 Other long term (current) drug therapy; Z79.82 Long term (current) use of aspirin; Z79.4 Long term (current) use of insulin; Z79.890 Hormone replacement therapy; Z95.5 Presence of coronary angioplasty implant and graft; Z82.49 Family history of ischemic heart disease and other diseases of the circulatory system; Z87.891 Personal history of nicotine dependence; I25.2 Old myocardial infarction
CPT/HCPCS: 36415; 36416; 80048; 83735; 84443; 85025; 86361; 87536; 93306; 93798; 94640; 97139; C9113; C9399; J0696; J1815; J1940; J2272; J2405; J3490; Q0162